=== PATIENT | male | born 1965 | race Caucasian/White ===

== ENCOUNTER 2022-08-29 13:24 | Emergency (ER) | payer BC, OTHER ==
[2022-08-29 13:43] VITALS: BP 120/85; PULSE 75; RESP 18; TEMP 98; BMI 38.7
[2022-08-29] MEDS ORDERED: diazePAM 5 MG TABLET PO ONE (15:53)
[2022-08-29] MEDS ORDERED: KETOROLAC TROMETHAMINE 30 MG/1 ML VIAL IM ONE (15:53)
[2022-08-29] MEDS ORDERED: LIDOCAINE 5% TOPICAL PATCH TP ONE (15:53)
[2022-08-29] MEDS ORDERED: LIDOCAINE 5% TOPICAL PATCH ONE (16:05)
[2022-08-29] MEDS ORDERED: diazePAM 5 MG TABLET ONE (16:05)
[2022-08-29] MEDS ORDERED: KETOROLAC TROMETHAMINE 30 MG/1 ML VIAL ONE (16:05)
[2022-08-29 17:39] LABS: BASO % 0.7 % (0-2.0); EOS % 3.5 % (0-4.5); HEMATOCRIT 43.4 % (35.4-49); HEMOGLOBIN 14.8 GM/dL (11.7-16.9); LYMPH % 29.4 % (8-40); MCH 28.9 pg (25.7-33.7); MCHC 34.1 g/dl (32.0-35.9); MEAN CELL VOLUME 84.8 fl (80-96); MEAN PLT VOLUME 9.2 fl (7.5-11.1); MONO % 8.7 % (3.8-10.2); NEUT % 57.7 % (42.8-82.8); PLATELET COUNT 224 10^3/uL (134-434); RBC 5.12 M/mm3 (4.00-5.60); RDW 13.3 % (11.9-15.9); WHITE BLOOD COUNT 5.7 K/mm3 (4.0-10.0)
[2022-08-29 18:28] LABS: ALBUMIN 3.5 g/dl (3.4-5.0); CALCIUM 8.7 mg/dL (8.5-10.1)
[2022-08-29 18:29] LABS: BLOOD UREA NITROGEN 17.5 mg/dL (7-18)
[2022-08-29 18:32] LABS: CREATININE 0.9 mg/dL (0.55-1.3)
[2022-08-29 18:33] LABS: BILIRUBIN,TOTAL 0.4 mg/dL (0.2-1); TOT PROT 6.7 g/dl (6.4-8.2)
[2022-08-29] MEDS ORDERED: LIDOCAINE PATCH REMOVAL MC SCH (22:00)
== END 2022-08-29 18:23 | disposition home or self-care (01) ==
LOC: JER 13:24 → JERFT 13:24
PROC: 3E023GC Introduction of Other Therapeutic Substance into Muscle, Percutaneous Approach (ICD-10-PCS; principal; 2022-08-29)
DX: M54.2 Cervicalgia (principal); X50.0XXA Overexertion from strenuous movement or load, initial encounter; Y93.F2 Activity, caregiving, lifting
CPT/HCPCS: 36415; 80053; 84484; 85025; 93005; 93010; 99284-25

== ENCOUNTER 2024-03-15 09:42 | Emergency (ER) | payer OTHER, BC ==
[2024-03-15 09:55] VITALS: BP 134/98; PULSE 94; RESP 18; TEMP 98.4; BMI 40.7
== END 2024-03-15 13:13 | disposition home or self-care (01) ==
LOC: JERFT 09:42
DX: M54.50 Low back pain, unspecified (principal); V43.32XA Unspecified car occupant injured in collision with other type car in nontraffic accident, initial encounter
CPT/HCPCS: 72100-TC-FY; 99283-25

== ENCOUNTER 2024-07-09 07:51 | Emergency (ER) | payer BC, OTHER ==
[2024-07-09 08:02] VITALS: BP 121/78; PULSE 83; RESP 18; TEMP 99.3; BMI 36.4
[2024-07-09] MEDS ORDERED: ACETAMINOPHEN 500 MG TABLET (FP) ONE (08:32)
[2024-07-09] MEDS: ACETAMINOPHEN 500 MG TABLET (FP) PO ONE (08:39)
== END 2024-07-09 09:32 | disposition home or self-care (01) ==
LOC: JERFT 07:51
DX: J10.1 Influenza due to other identified influenza virus with other respiratory manifestations (principal); R50.9 Fever, unspecified; R05.9 Cough, unspecified; M79.10 Myalgia, unspecified site; R53.83 Other fatigue; R42 Dizziness and giddiness; Z20.822 Contact with and (suspected) exposure to COVID-19
CPT/HCPCS: 0241U-QW; 71046-TC-FY; 99284-25